=== PATIENT | female | born 1970 | race Caucasian/White ===

== ENCOUNTER 2017-04-26 23:07 | Emergency (ER) | payer SELFPAY ==
[2017-04-26 23:43] VITALS: BP 133/64
[2017-04-27] MEDS ORDERED: Ibuprofen 600 MG Tab PO ONE (00:07)
--- NOTE | 2017-04-27 00:13 | EDM.PDOC ---
ED HPI GENERAL MEDICAL PROBLEM - General Chief Complaint: General Stated Complaint: DIZZY Time Seen by Provider: 04/26/17 23:45 Source of Information: Reports: Patient, Family () History Limitations: Reports: No Limitations - History of Present Illness INITIAL COMMENTS - FREE TEXT/NARRATIVE: dizziness; this is a 46 year old female present to ER with her . Reports has been coughing with increased phlem over the past 2 years, but today having sinus congestion, headache, cough with fever. She reports smokes 2 packs per day since age 20 years= 28 years. denies any chest pain, shortness of breath, dysuria, nausea, vomiting, diarrhea , rash, tick bite or other concerns. denies ; reports last menses 10/2016. no control/contraception by her or her . has one child age 22 years, 2 miscarriages. surgeries; appendectomy, corrective eye surgery. Onset: Today Duration: Day(s):, Constant Location: Reports: Generalized (dizziness) Quality: Reports: Throbbing (headache) Severity: Moderate Improves with: Reports: None Worsens with: Reports: None Associated Symptoms: Reports: Cough, Fever/Chills, Headaches Headache Pain Score (Numeric/FACES): 4 - Related Data Allergies Allergy/AdvReac Type Severity Reaction Status Date / Time No Known Allergies Allergy Verified 04/26/17 23:43 Home Meds: Home Meds NK [No Known Home Meds] 04/26/17 [History] Past Medical History - Past Health History Medical/Surgical History: Denies Medical/Surgical History HEENT History: Reports: Impaired Vision HEMODIALYSIS CHARGE NURSE History: Reports: , Spontaneous Other OB/BYN History: g-3-p-1 Musculoskeletal History: Reports: Back Pain, Chronic Psychiatric History: Reports: Learning Disability - Infectious Disease History Infectious Disease History: Reports: Chicken Pox - Past Surgical History HEENT Surgical History: Reports: Eye Surgery GI Surgical History: Reports: Appendectomy Social & Family History - Tobacco Use Smoking Status *Q: Current Every Day Smoker Years of Tobacco use: 24 Packs/Tins Daily: 1.5 Used Tobacco, but Quit: No Second Hand Smoke Exposure: Yes - Caffeine Use Caffeine Use: Reports: Soda Caffeine Use Comment: a lot - Alcohol Use Days Per Week of Alcohol Use: 0 - Recreational Drug Use Recreational Drug Use: No - Living Situation & Occupation Living situation: Reports: (works as [employer] at [place], [place]., lives with in [place], [place].) Occupation: Employed ED ROS GENERAL - Review of Systems Review Of Systems: See Below Constitutional: Reports: Fever, Malaise HEENT: Reports: Sinus Problem, Vertigo Respiratory: Reports: Cough, Sputum, Other (2 pack per day Smoker) Cardiovascular: Reports: No Symptoms Endocrine: Reports: No Symptoms GI/Abdominal: Reports: No Symptoms : Reports: No Symptoms Musculoskeletal: Reports: No Symptoms Skin: Reports: No Symptoms Neurological: Reports: No Symptoms Psychiatric: Reports: No Symptoms Hematologic/Lymphatic: Reports: No Symptoms Immunologic: Reports: No Symptoms ED EXAM, GENERAL - Physical Exam Exam: See Below Exam Limited By: No Limitations General Appearance: Alert, WD/WN, No Apparent Distress Ears: Normal External Exam, Normal Canal, Hearing Grossly Normal, Normal TMs Ear Exam: Bilateral Ear: Auricle Normal, Canal Normal, TM normal Nose: Nasal Swelling (right nare with bloody discharge and inflammation), Nasal Drainage Throat/Mouth: Normal Voice, No Airway Compromise, Inflammation, Other (pharynx with inflammation, tonsils large and beefy, uvula midline without deviation.) Head: Atraumatic, Normocephalic Neck: Normal Inspection, Supple, Non-Tender, Full Range of Motion Respiratory/Chest: No Respiratory Distress, Lungs Clear, Normal Breath Sounds, No Accessory Muscle Use, Chest Non-Tender, Decreased Breath Sounds Cardiovascular: Normal Peripheral Pulses, Regular Rate, Rhythm, No Edema, No Murmur GI/Abdominal: Normal Bowel Sounds, Soft, Non-Tender, No Organomegaly (Female) Exam: Deferred Rectal (Female) Exam: Deferred Back Exam: Normal Inspection, Full Range of Motion Extremities: Normal Inspection, Normal Range of Motion, Non-Tender, No Pedal Edema, Normal Capillary Refill Neurological: Alert, Oriented, CN II-XII Intact, Normal Cognition, Normal Gait, Normal Reflexes, No Motor/Sensory Deficits Psychiatric: Normal Affect, Normal Mood Skin Exam: Warm, Dry, Intact, Normal Color, No Rash Lymphatic: No Adenopathy Course - Vital Signs Last Recorded V/S: Last Vital Signs Temp 38.7 C H 04/27/17 00:42 Pulse 122 H 04/26/17 23:39 Resp 16 04/26/17 23:39 BP 133/64 04/26/17 23:39 Pulse Ox 97 04/26/17 23:39 - Orders/Labs/Meds Orders: Active Orders 24 hr Category Date Time Status Chest 2V [CR] Urgent Exams 04/27/17 00:06 Taken CULTURE STREP A CONFIRMATION [] Stat Lab 04/27/17 00:05 Results STREP SCRN A RAPID W CULT CONF [] Stat Lab 04/27/17 00:05 Results Sodium Chloride 0.9% [Normal Saline] 1,000 ml Med 04/27/17 00:30 Active IV ASDIRECTED Medication Orders Sodium Chloride (Normal Saline) 1,000 mls @ 999 mls/hr IV ASDIRECTED GLENN Last Admin: 04/27/17 00:40 Dose: 999 mls/hr Labs: Laboratory Tests 04/27/17 04/27/17 Range/Units 00:06 00:07 Urine Color Yellow Urine Appearance Clear Urine pH 5.0 (4.5-8.0) Ur Specific [place] 1.020 (1.008-1.030) Urine Protein Negative (NEGATIVE) mg/dL Urine Glucose (UA) Normal (NEGATIVE) mg/dL Urine Ketones Negative (NEGATIVE) mg/dL Urine Occult Blood Negative (NEGATIVE) Urine Nitrite Negative (NEGATIVE) Urine Bilirubin Negative (NEGATIVE) Urine Urobilinogen 1 (NORMAL) mg/dL Ur Leukocyte Esterase Negative (NEGATIVE) Urine RBC 0-5 (0-5) Urine WBC 5-10 H (0-5) Ur Epithelial Cells Moderate Amorphous Sediment Few Urine Bacteria Rare Urine Mucus Few Urine HCG, Qual Negative Meds: Medications Generic Name Dose Route Start Last Admin Trade Name Freq PRN Reason Stop Dose Admin Sodium Chloride 1,000 mls @ 999 mls/hr 04/27/17 00:30 04/27/17 00:40 Normal Saline IV 999 mls/hr ASDIRECTED GLENN Administration Discontinued Medications Generic Name Dose Route Start Last Admin Trade Name Freq PRN Reason Stop Dose Admin Ibuprofen 600 mg 04/27/17 00:07 04/27/17 00:14 Motrin PO 04/27/17 00:08 600 mg ONETIME ONE Administration - Re-Assessments/Exams Free Text/Narrative Re-Assessment/Exam: 04/27/17 00:21 temp noted to be at 103.0-122-16 b/p 133/64 o2 sat 97% labs; urine hcg, urine with micro, rapid strep imaging; chest xray 2 view meds; motrin 600mg po now. IV normal saline at 999ml/hr await lab results. 04/27/17 00:29 urine; negative for infectious process urine hcg negative rapid strep negative 04/27/17 01:02 chest xray;no infiltrates noted plan; Mrs. Bishop improved with IV fluids and motrin. will treat for sinusitis and discharge to home. Departure - Departure Time of Disposition: :07 Disposition: Home, Self-Care 01 Condition: Good Clinical Impression: Sinusitis, acute - Discharge Information Referrals: Viral Silveira MD [Primary Care Provider] - Forms: ED Department Discharge Care Plan Goals: acute sinusitis -Amoxicillin 500mg three times a day for 10 days -over the counter; benadryl 25mg every 6 hours as needed for congestion -over the counter tylenol or motrin for pain or fever -advise no work on Apr 27 and , or until well return to Clinic or ER if not improved or symptoms worsen. - Problem List & Annotations (1) Sinusitis, acute SNOMED Code(s): 00626536 Code(s): J01.90 - ACUTE SINUSITIS, UNSPECIFIED Status: Acute Priority: Medium Current Visit: Yes Qualifiers: Sinusitis location: maxillary Recurrence: not specified as recurrent Qualified Code(s): J01.00 - Acute maxillary sinusitis, unspecified (2) Tobacco use SNOMED Code(s): 296775317 Code(s): Z72.0 - TOBACCO USE Status: Acute Priority: Medium Current Visit: Yes - Problem List Review Problem List Initiated/Reviewed/Updated: Yes - My Orders Last 24 Hours: My Active Orders 04/27/17 00:05 CULTURE STREP A CONFIRMATION [RM] Stat STREP SCRN A RAPID W CULT CONF [RM] Stat 04/27/17 00:06 Chest 2V [CR] Urgent 04/27/17 00:30 Sodium Chloride 0.9% [Normal Saline] 1,000 ml IV ASDIRECTED - Assessment/Plan Last 24 Hours: My Active Orders 04/27/17 00:05 CULTURE STREP A CONFIRMATION [RM] Stat STREP SCRN A RAPID W CULT CONF [RM] Stat 04/27/17 00:06 Chest 2V [CR] Urgent 04/27/17 00:30 Sodium Chloride 0.9% [Normal Saline] 1,000 ml IV ASDIRECTED Plan: acute sinusitis -Amoxicillin 500mg three times a day for 10 days -over the counter; benadryl 25mg every 6 hours as needed for congestion -over the counter tylenol or motrin for pain or fever -advise no work on Apr 27 and , or until well -advise to cut down or quit smoking. return to Clinic or ER if not improved or symptoms worsen.
[2017-04-27] MEDS ORDERED: Sodium Chloride 0.9% 1,000 ML IV SCH (00:30)
--- NOTE | 2017-04-27 09:19 | CR ---
Chest 2V FINDINGS: The heart and vascular structures are normal in appearance. No infiltrates or effusions are demonstrated. The skeletal structures are unremarkable. IMPRESSION: Negative exam.
== END 2017-04-27 01:50 | disposition home or self-care (01) ==
LOC: JP.ED 23:07
DX: J01.90 Acute sinusitis, unspecified (principal); F17.210 Nicotine dependence, cigarettes, uncomplicated; Z90.49 Acquired absence of other specified parts of digestive tract
CPT/HCPCS: 71020; 81001; 81025; 87081; 87430; 96360; 99284; A9270; J7040; 99283